=== PATIENT | male | born 1960 | race Caucasian/White ===

== ENCOUNTER 2016-10-30 00:48 | Inpatient (IN) | payer MEDICAID ==
[2016-10-30] VITALS (14 sets, daily range): BP systolic 116–180
[~2016-10-30] VITALS: Ht 170.2 cm; Wt 68.0 kg
[~2016-10-30 00:48] MED LIST: NAPR375T PO; NORCO5 PO
--- NOTE | 2016-10-30 00:48 | NUR ---
Patient to ER bed 7 to gown for evaluation. Side rails up.
--- NOTE | 2016-10-30 01:16 | NUR ---
ASIF Taylor at bedside examining patient.
--- NOTE | 2016-10-30 01:22 | NUR ---
Pt. presented to ED with notable facial lac on the bridge of his nose. Pt stated "I fell down the stairs". Pt. AAOx2 with periods of confusion.
[2016-10-30] MEDS ORDERED: LORazepam 2 MG/ML VIAL (FOR ER USE) IVP ONE ×2 (01:30→02:30)
[2016-10-30] MEDS ORDERED: NACL 0.9% 1,000 ML IV ONE (01:30)
[2016-10-30] MEDS ORDERED: DIPH-TET-PERTUS Vaccine 0.5 ML VIAL (ADACEL) IM ONE (01:30)
--- NOTE | 2016-10-30 01:45 | NUR ---
# 18 gauge angiocath placed to left AC. Use of asceptic technique. Opsite placed over site. Blood return noted. Blood for lab drawn from site. Flushed with 10 cc of normal saline. No evidence of infiltration noted. Patient tolerated well.
--- NOTE | 2016-10-30 01:53 | NUR ---
Pt. is having auditory and visual hallucinations at this time and frequently trying to get out of bed.
[2016-10-30 01:56] LABS: BASOPHILS # (AUTO) 0.1 K/uL (0.0-0.2); BASOPHILS % (AUTO) 1.1 % (0.0-2.0); EOSINOPHILS # (AUTO) 0.4 K/uL (0.0-0.4); EOSINOPHILS % (AUTO) 3.7 % (0.0-4.0); HEMATOCRIT 39.8 % (36-54); HEMOGLOBIN 13.9 g/dL (14.0-18.0); LYMPHOCYTES # (AUTO) 2.5 K/uL (1.0-5.5); LYMPHOCYTES % (AUTO) 21.4 % (20.5-51.5); MEAN CORPUSCULAR HEMOGLOBIN 30 pg (27-31); MEAN CORPUSCULAR HGB CONC 35 % (32-36); MEAN CORPUSCULAR VOLUME 85 fL (79.0-98.0); MONOCYTES # (AUTO) 0.8 K/uL (0.0-1.0); NEUTROPHILS # (AUTO) 7.9 K/uL (1.8-7.7); NEUTROPHILS % (AUTO) 66.8 % (40.0-70.0); PLATELET COUNT (AUTO) 357 K/uL (130-430); RED BLOOD CELL COUNT(AUTO) 4.69 MIL/uL (4.2-6.2); RED CELL DISTRIBUTION WIDTH 13.1 % (9.0-15.0); WHITE BLOOD COUNT (AUTO) 11.7 K/uL (4.8-10.8)
[2016-10-30] MEDS ORDERED: HALOPERIDOL LACTATE 5 MG/ML VIAL IVP ONE (02:00)
[2016-10-30 02:02] LABS: CALCIUM 8.7 mg/dL (8.4-11.0); CHLORIDE 110 mmol/L (98-107); CREATININE 1.14 mg/dL (0.55-1.30); GLUCOSE 112 mg/dL (70-99); POTASSIUM 3.8 mmol/L (3.5-5.1); SODIUM SERUM 139 mmol/L (136-145); UREA NITROGEN, BLOOD 6 mg/dL (8-21)
[2016-10-30 02:07] LABS: ALANINE AMINOTRANSFERASE 15 U/L (12-78); ALBUMIN 3.8 g/dL (3.4-4.8); ASPARTATE AMINOTRANSFERASE 19 U/L (10-37); TOTAL BILIRUBIN 0.3 mg/dL (0.0-1.0); TOTAL PROTEIN, SERUM 6.9 g/dL (6.4-8.3)
[2016-10-30 02:11] LABS: GFR AFRICAN AMERICAN 86 mL/min (>90)
[2016-10-30 02:12] LABS: ALCOHOL, BLOOD < 3 mg/dL (<10); ANION GAP < 3 (5-15)
[2016-10-30] MEDS ORDERED: OXYC30TA77 PO (02:19)
[2016-10-30] MEDS ORDERED: DIPHENHYDRAMINE INJ 50 MG/ML VIAL ONE ×2 (02:24→15:58)
[2016-10-30] MEDS ORDERED: DIPHENHYDRAMINE INJ 50 MG/ML VIAL IVP ONE (02:30)
[2016-10-30] MEDS ORDERED: HALOPERIDOL LACTATE 5 MG/ML VIAL IM ONE ×2 (02:30→15:45)
[2016-10-30] MEDS ORDERED: MORPHINE 2 MG/ML INJ. SYRINGE IVP ONE (03:00)
[2016-10-30 03:58] LABS: BARBITURATE, URINE NEGATIVE (NEG <=200); BENZODIAZEPINE, URINE POSITIVE (NEG <=150); METHAMPHETAMINES SCREEN,URINE POSITIVE (NEG <=500); URINE AMPHETAMINE POSITIVE (NEG <=500); URINE METHADONE NEGATIVE (NEG <=200)
[2016-10-30 03:59] LABS: CANNABINOID, URINE POSITIVE (NEG <=50); COCAINE, URINE NEGATIVE (NEG <=150); OPIATE, URINE NEGATIVE (NEG <=100); PHENCYCLIDINE SCREEN,URINE NEGATIVE (NEG <=25); UR TRICYCLIC ANTIDEPRESSANTS NEGATIVE (NEG <=300); URINE OXYCODONE SCREEN POSITIVE (NEG <=100); URINE PROPOXYPHENE SCREEN NEGATIVE (NEG <=300)
--- NOTE | 2016-10-30 04:20 | NUR ---
Note bee in ED - 10/30/16 at 0458 by JENIFER Pt is severly anxious and ripping off his pulse ox, leads, and blood pressure cuff. 12 lead EKG unsucessful after mutiple attempts due to patient constantly moving and ripping off leads.
--- NOTE | 2016-10-30 04:20 | NUR ---
Pt is severly anxious and ripping off his pulse oximetry, leads, and blood pressure cuff. 12 lead EKG unsucessful after mutiple attempts due to patient constantly moving and ripping off leads. Dr. Jacobson made aware.
--- NOTE | 2016-10-30 05:35 | NUR ---
Pt. continues to be anxious/agitated and jumping out of bed. Pt. is very confused and unable to listen to directions at this time.
[2016-10-30] MEDS ORDERED: KETAMINE HCL 500 MG/10 ML VIAL IM ONE ×2 (05:45→06:00)
--- NOTE | 2016-10-30 05:55 | NUR ---
Time out called.
[2016-10-30] MEDS ORDERED: KETAMINE HCL 500 MG/10 ML VIAL ONE (05:57)
--- NOTE | 2016-10-30 05:58 | NUR ---
ASIF Taylor at bedside examining patient.
--- NOTE | 2016-10-30 06:00 | NUR ---
Ketamine has been administered, 1 to 1 care being provided. Pt. on O2 via NC 2L, pulse ox and cardiac monitoring. Pt. stable at this time.
--- NOTE | 2016-10-30 06:15 | NUR ---
Pt. continues to be on 1 to 1 monitoring. Pt. is still anxious and agitated and trying to get out of bed. VS stable. Will cont. to monitor.
--- NOTE | 2016-10-30 06:30 | NUR ---
See Moderate sedation form.
--- NOTE | 2016-10-30 06:50 | NUR ---
Called Dr. John Hoang with a consult, spoke with Toshia from the exchange
--- NOTE | 2016-10-30 06:50 | NUR ---
Called Dr. Montes at [phone] with a consult, spoke with Toshia from the exchange
--- NOTE | 2016-10-30 06:59 | NUR ---
Pt. being transfered to ICU 1 as per ACLS protocol. Pt. still confused and trying to get out of bed. Pt. stable for transfer at this time
--- NOTE | 2016-10-30 07:00 | NUR ---
PM ASSESSMENT PT AWAKE, AGITATED AND COMBATIVE, AFEBRILE. RESTRAINTS BILAT WRISTS APPLIED, W/ GOOD CIRCULATION. NO IV SITE. ROOM AIR. LACERATIONS ON BRIDGE OF NOSE, STERISTRIPS APPLIED. SAFETY PRECAUTIONS IN PLACE, WILL CONTINUE TO MONITOR.
--- NOTE | 2016-10-30 07:01 | NUR ---
Bedside report given to receiving ROSALINA Freeman.
--- NOTE | 2016-10-30 07:30 | NUR ---
CLOSING REPORT PT AWAKE AND AGITATED. BED IN LOWEST POSITION, RESTRAINTS IN PLACE, W/ GOOD CIRCULATION. BEDSIDE REPORT GIVEN TO ROSALINA ROBERTS.
--- NOTE | 2016-10-30 07:31 | NUR ---
AM Assessment Received Pt awake, alert, orientated x1 to self. Pt breathing even and unlabored.Pt appears agitated and restless. Pt noted kicking his feet and attempting to get out of bed. Reorientated Pt to place, time and situation. PERRLA noted. Pt able to follow simple commands and verbalized needs. Lung sounds auscultated, lung sounds clear throughout all lobes. Abd. auscultated, bowel sounds noted throughout all quadrant. BUE and BLE AROM noted, bilateral radial and pedal pulse noted. 5/5 muscle strength noted for BUE and BLE noted. Bilateral wrist restraints in placed. Wrist restraints taken off for 5 mins. Skin WNL, cap refills less than 3 secs, skin is warm to the touch. Assessment done, plan of care discussed with Pt, call light within easy reach, bed at lowest position, will continue to monitor.
--- NOTE | 2016-10-30 07:40 | NUR ---
Called Dr. Montes at [phone] for orders per nurse Evelyne, spoke with Catrina from the exchange
--- NOTE | 2016-10-30 08:56 | NUR ---
Rounds Pt awake. Pt appears very agitated, restless, kicking his feet, tossing and turning in bed. Pt noted talking to self. Pt stated he hears voices and see people walking around. Pt states he's in a car. Reorientated Pt to place, time, and situation. Safety measures and fall precaution in placed. Informed Pt to push the call light if Pt needs assistance with anything. Pt verbalized understanding. Call light within easy reach, bed at lowest position. Will continue to monitor.
--- NOTE | 2016-10-30 09:30 | NUR ---
Dr. Montes was paged x2. Spoke with Arron (answering service). Arron stated she has not made Dr. Montes aware. This is the 2nd attempt. Currently awaiting return phone call.
--- NOTE | 2016-10-30 10:00 | NUR ---
Dr. Montes was paged x3. Spoke with Arron (answering service). Arron stated she has not made Dr. Montes aware. This is the 3rd attempt. Currently awaiting return phone call.
[2016-10-30] MEDS: LORazepam 2 MG/ML VIAL IVP PRN ×3 (10:38→23:24)
[2016-10-30] MEDS: D5NS 1,000 ML IV SCH ×2 (10:39→19:43)
--- NOTE | 2016-10-30 11:00 | NUR ---
Dr. Montes was paged x4. Spoke with Arron (answering service). Currently awaiting returned phone call.
--- NOTE | 2016-10-30 11:03 | NUR ---
Pt appears restless, agitated, tossing and turning in bed. Pt noted talking to self. Pt was screaming, "Sally". Verbalized to Pt that there is no one present. Reorientated Pt to place, time and situation. Informed Pt to push the call light if Pt needs assistance with anything. pt verbalized understanding. Call light within easy reach, bed at lowest position, will continue to monitor. Addendum: 10/30/16 at 1113 by Evelyne Maxwell RN Ativan was administered as ordered and ineffective.
--- NOTE | 2016-10-30 11:30 | NUR ---
MD rounds Pt awake. Pt attempting to get out of bed and biting on wrist restraints. Pt was reassess. No injuries noted on Pt. Reeducated Pt on safety measures that are in place, purpose of medical equipment, and plan of care. Pt verbalized understanding. Informed Pt to push the call light if Pt needs assistance with anything. Pt verbalized understanding. Call light within easy reach, bed at lowest position, will continue to monitor.
[2016-10-30] MEDS ORDERED: HALOPERIDOL LACTATE 5 MG/ML VIAL IVP PRN (12:00)
--- NOTE | 2016-10-30 12:13 | NUR ---
ALISE WATTS Received msg from Luba @ [facility] she is assigned CM: fax [phone], ph [phone].
--- NOTE | 2016-10-30 13:01 | NUR ---
MD rounds Pt awake. Pt appears agitated, restless, and talking to self. Reorientated Pt to place, time, and situation. Dr. Lopez at the bedside discussing plan of care. Informed Pt to push the call light if Pt needs assistance with anything. Pt verbalized understanding. Call light within easy reach, bed at lowest position, will continue to monitor.
[2016-10-30] MEDS: HALOPERIDOL LACTATE 5 MG/ML VIAL IVP PRN ×3 (13:20→23:25)
[2016-10-30] MEDS ORDERED: DIPHENHYDRAMINE INJ 50 MG/ML VIAL IM ONE (15:45)
[2016-10-30] MEDS ORDERED: LORazepam 2 MG/ML VIAL IM ONE (15:45)
[2016-10-30] MEDS ORDERED: LORazepam 2 MG/ML VIAL ONE (15:58)
[2016-10-30] MEDS ORDERED: HALOPERIDOL LACTATE 5 MG/ML VIAL ONE (15:59)
--- NOTE | 2016-10-30 16:00 | NUR ---
Spoke with Dr. Montes. made aware Pt has been restless, agitated, tossing and turning in bed, attempting to get out of bed, removing medical office assistant instructor, and talking to self. Speech is mumbled. Reorientated Pt to place, time and situation. Pt teaching has been ineffective. New orders to administered Haldol 5mg IM once, Ativan 2mg IM once, and Benadryl 50mg IM once. New orders read back, acknowledge, and noted.
--- NOTE | 2016-10-30 16:51 | NUR ---
Pt refused telemonitor. Reeducated Pt on the purpose of frequent monitor. Pt stated, "I don't want the monitor on. I can't sleep. It's bothering me and it's uncomfortable." Informed Pt to push the call light if Pt needs assistance with anything. Pt verbalized understanding. Call light within easy reach, bed at lowest position, will continue to monitor.
--- NOTE | 2016-10-30 17:30 | NUR ---
Page Dr Montes to update MD of Pt condition. Medication ordered by MD was not effective. Currently waiting returned phone call.
--- NOTE | 2016-10-30 19:30 | NUR ---
Initial Notes Received patient laying in bed, awake, restless, oriented to self only. Patient talking to self, uncooperative, attempting to get out of bed frequently, in bilateral soft wrist restraints. Patient denies any acute distress or pain when asked. Breathing even and unlabored on room air. IV site patent/clean/dry. Patient currently refusing monitoring, pulling at wires and attempting to bite at restraints. Educated patient on importance of monitoring, patient continue to refuse. Educated patient on use of call light for assistance and fall precautions. Incontinence care provided. Call light in hand, will continue to monitor.
--- NOTE | 2016-10-30 19:45 | NUR ---
Patient's mother at bedside. Mother at bedside. Patient is attempting to remove wrist restraints and get out of bed, stating he's go home with his mother, reoriented patient. Mother states she does not want patient to return to her home after discharge. Advised mother to call in the morning to speak with case management and clinical social work aide.
--- NOTE | 2016-10-30 22:00 | NUR ---
Rounds Patient remains restless, no change in mentation. Patient in no acute distress or pain. Breathing even and unlabored. IV site patent/clean/dry. Patient tolerating restraints, fingers warm to touch, pulses present, cap refill normal. Patient continues to attempt to bite at restraints and to remove monitoring devices. Re-educated patient on importance of monitoring, and redirected patient's attention from equipment. Call light in hand, fall precautions in place. Will continue to monitor.
--- NOTE | 2016-10-30 23:32 | NUR ---
Medicated for agitation Patient having frequent moments of agitation, disorientation, attempting to remove restraints and get out of bed. Medicated patient per MD orders. Vital signs stable. Patient refusing to keep monitoring lines in place, becoming aggressive unless removed. Educated patient on importance, patient continue to refuse.
[2016-10-31] VITALS (15 sets, daily range): BP systolic 124–160
--- NOTE | 2016-10-31 01:00 | NUR ---
Confusion/Agitation Patient confused, and agitated. Managed to get out of restraints, removed monitor and clothing, and got out of bed attempting to leave hospital in confused state. Security called to assist in getting patient back into bed and restraints. Vital signs stable. Reoriented patient to surroundings. Call light in hand, fall precautions in place. Will continue to monitor.
--- NOTE | 2016-10-31 04:00 | NUR ---
Agitation and BM Patient agitated on/off, attempted to reoriented patient to surroundings. Medicated patient per MD orders. Patient in no distress or pain. Breathing even and unlabored. IV site patent/clean/dry. Tolerating restraints, fingers warm to touch, pulses present, car refill normal. Patient had BM, incontinence care and linen change provided. Call light in hand, will continue to monitor.
[2016-10-31] MEDS: HALOPERIDOL LACTATE 5 MG/ML VIAL IVP PRN (04:13)
[2016-10-31] MEDS: LORazepam 2 MG/ML VIAL IVP PRN ×2 (04:13→11:45)
[2016-10-31] MEDS: D5NS 1,000 ML IV SCH ×2 (04:57→15:25)
--- NOTE | 2016-10-31 06:30 | NUR ---
Closing Notes Patient resting in bed with eyes closed, has short periods of rest/sleep followed by periods of restlessness and agitation. Patient denies any acute distress or pain at this time. Breathing even and unlabored on room air. IV site patent/clean/dry, no S/S infection/infiltration noted. Patient remains on bilateral soft wrist restraints, tolerating well; fingers warm to touch, pulses present, cap refill normal. Needs addressed throughout shift. Call light in hand, fall precautions in place. Will continue to monitor for changes and safety, and endorse all patient care/needs to oncoming nurse.
--- NOTE | 2016-10-31 06:42 | NUR ---
Consult f/u Call was placed to Dr Montes's office [phone], followed up on a consult from 10/30. Pt has not been seen by psych . Spoke with Paige at the doctors exchange. Will follow up as needed.
--- NOTE | 2016-10-31 07:30 | NUR ---
AM Assessment Received Pt awake, alert, orientated x2 to self and . Reoriented Pt to place, time, and situation. Pt noted talking to self, mumbling words. Pt states he was talking to a girl in the room. Informed Pt that no one was in the room. Pt appears restless and tossing in bed. Body twitching noted. Informed Pt to push the call light if Pt needs assistance with anything. Pt verbalized understanding. Call light within easy reach, bed at lowest position, will continue to monitor.
--- NOTE | 2016-10-31 08:45 | NUR ---
Dr. Montes paged x2. Spoke with Nati (MD exchange). Currently awaiting return paged to follow up on new consult. has not made his rounds.
--- NOTE | 2016-10-31 09:00 | NUR ---
MD rounds Pt awake. Dr. Mayorga at the bedside discussing plan of care. Informed Pt to push the call light if Pt needs assistance with anything. Pt verbalized understanding. Call light within easy reach, bed at lowest position, will continue to monitor.
--- NOTE | 2016-10-31 09:03 | NUR ---
Nutrition Update Fantasma Scale 17 noted. Pt admitted for ALOC, drug overdose. Diet: N/A BMI: 23.5 kg/m2 RD to follow per nutrition care standards.
--- NOTE | 2016-10-31 09:30 | NUR ---
Dr. Viktor Lopez called Re: follow up and Neuro clearance Per Dr. Lopez, patient is neurologically clear.
--- NOTE | 2016-10-31 10:15 | NUR ---
MD VISIT: DR. TANIA MARIN HERE TO SEE PATIENT, WITH ORDERS CARRIED OUT. MADE AWARE PATIENT WAS CLEARED MEDICALLY BY DR. HARDIN AND NEURO CLEARED BY DR. Jennifer HERRERA. PATIENT WAS PLACED ON 5150. WILL NOTIFY FARM OPERATIONS MANAGER FOR PSYCH FACILITY PLACEMENT.
--- NOTE | 2016-10-31 10:55 | NUR ---
Social Service Note: Pt was placed on a 5150 by psychiatrist; pt has orders to transfer to a psychiatric unit. [employer] has contacted [facility] [place] [facility] spoke to Diann; Diann stated that there are no beds but pt's information could be faxed should anything open up. [employer] contacted [facility]; [employer] spoke to Ester; Ester asked for pt's information to be faxed over; [employer] has faxed pt's information to [facility]. [employer] contacted [facility]; [employer] spoke to Steffanie; Steffanie asked for pt's information to be faxed over; [employer] has faxed pt's information for review. Addendum: 10/31/16 at 1255 by Carol Farooq LCSW Information has been faxed to [facility] [place]. [employer] placed call to [facility]; [employer] spoke to Kushal who states they are full. [employer] placed call to [facility] and spoke to Vaishali and they are full. [employer] called [facility] and spoke to Dima who asked for pt's information to be faxed; information has been faxed. Addendum: 10/31/16 at 1458 by Carol Farooq LCSW JOSE contacted [facility] and left a message for their intake department. JOSE spoke to Trina at [facility] who states that they are reviewing and will call back after shift change. JOSE spoke to Cherelle at [facility] who states that they have no beds. Addendum: 10/31/16 at 1528 by Carol Farooq LCSW JOSE spoke to Yue at [facility] who stated that [facility], [facility], [facility], and [facility] are all full today. JOSE contacted [facility] who stated that they are full but that pt's information could be faxed if they had discharges. [facility] has faxed pt's information to [facility].
--- NOTE | 2016-10-31 14:00 | NUR ---
Pt awake. Pt appears agitated and restless. Pt noted talking to self. Words were mumbled. Pt stated there was a girl sitting at the corner of the room. Informed Pt the there was no one in the room. Reorientated Pt to place, time and situation. Pt also had a BM and urinated on self. Gloria care, skin care, linen changed. Informed Pt to push the call light if Pt needs assistance with anything. pt verbalized understanding. Call light within easy reach, bed at lowest position, will continue to monitor.
[2016-10-31] MEDS: QUEtiapine FUMARATE 100 MG TABLET PO SCH ×2 (15:25→20:31)
--- NOTE | 2016-10-31 15:55 | NUR ---
Pt resting. Chest rise and fall noted. Pt easily aroused by voice. Pt stated he does not need anything at the moment. Informed Pt the call light if Pt needs assistance with anything. pt verbalized understanding. Call light within easy reach, bed at lowest position. will continue to monitor.
--- NOTE | 2016-10-31 18:00 | NUR ---
Pt awake and eating dinner. Pt denies hearing voices. Pt stated he does not need anything at the moment. Informed Pt to push the call light if Pt needs assistance with anything. Pt verbalized understanding. Call light within easy reach, bed at lowest position, will continue to monitor.
--- NOTE | 2016-10-31 20:00 | NUR ---
AWAKE, ALERT. CONFUSED AT TIMES. DENIES PAIN. EKG LEADS OFF, BP CUFF OFF, DISROBES. STATES HE TURNS AND HE BECOMES DISCONNECTED. RECONNECTED TO EKG AND BP CUFF. LEFT PIV DISLODGED, ALLOWED ANOTHER PIV TO BE RESTARTED IN LEFT FOREARM. COOPERATIVE. PLEASANT AT THIS TIME. MADE PACT NOT TO GET OUT OF BED. PROMISED TO BEHAVE. SEEMS TO UNDERSTAND CONSEQUENCES, RESTRAINTS OFF. SR. INSTRUCTED TO CALL WHEN HE NEEDS, CALL LIGHTS WITHIN REACH. ATIVAN 1 MG PO GIVEN WITH HS MEDS PER PT REQUEST FOR SLEEP.
[2016-10-31] MEDS: LORazepam 1 MG TABLET PO PRN (20:31)
--- NOTE | 2016-10-31 22:00 | NUR ---
DOZES ON AND OFF. NO DISTRESS NOTED.
[2016-11-01] VITALS (24 sets, daily range): BP systolic 103–158
--- NOTE | 2016-11-01 | NUR ---
SOUNDLY ASLEEP. TURNS SELF WELL. VSS. LOOKS COMFORTABLE.
[2016-11-01] MEDS: D5NS 1,000 ML IV SCH ×3 (02:07→23:07)
--- NOTE | 2016-11-01 04:00 | NUR ---
ASLEEP. VSS. TURNS SELF WELL. NO DISTRESS NOTED.
--- NOTE | 2016-11-01 05:30 | NUR ---
OOB TO COMMODE, DEFECATED 1 MOD FORMED BROWN STOOL. URINATED IN COMMODE, UNABLE TO MEASURE. BACK TO BED WITH OUT INCIDENCE. SELF CHG BATH DONE, VERY MINIMAL ASSIST. PARTIAL LINEN CHANGE. LEFT FOREARM PIV DISLODGED, RESTARTED IN LEFT FA GAUGE 22. MANI WELL. SECURED PROPERLY.
--- NOTE | 2016-11-01 06:00 | NUR ---
RESTING QUIETLY. PLEASANT. NO ACTING OUT NOTED. AAOX4. REMAINS IN GUARDED CONDITION.
--- NOTE | 2016-11-01 07:40 | NUR ---
AM Shift Assessment Received pt AAOx4, lying in bed, calm. Pt denies wanting to harm self and states he "does not know what happened last night." Skin warm and dry with scabs noted on head and face, cover with steri strips. IVF infusing D5NS 100 ml/hr on LFA 22G. Pt c/o chronic back pain 10/10 and asking for ativan. Pt also cooperative with care and assessment. Heart sounds regular, SR on monitor, HR 80. Respirations even and unlabored on room air. Lungs sounds clear bilaterally. Bowel sounds present x4 quads. Pt voids via urinal. Pt also refuses to wear SCDs, states he is aware of "risks and benefits" of having SCDs. Bed in lowest position. Will continue to monitor.
--- NOTE | 2016-11-01 07:44 | NUR ---
Dr. Stanley in to see pt. New orders made, will continue with plan of care.
[2016-11-01] MEDS: GABAPENTIN 100 MG CAPSULE PO SCH ×2 (08:02→20:37)
[2016-11-01] MEDS: QUEtiapine FUMARATE 100 MG TABLET PO SCH ×3 (08:02→20:37)
--- NOTE | 2016-11-01 09:31 | NUR ---
DIPRIVAN Pt noted to squirm, shake head, and move hand up toward ETT during oral care. Increased diprivan to 30 mcg/kg/min. Addendum: 11/01/16 at 1136 by Frances Wyatt RN INCORRECT ENTRY FOR INCORRECT PATIENT
[2016-11-01] MEDS: LORazepam 2 MG/ML VIAL IVP PRN (10:02)
--- NOTE | 2016-11-01 11:36 | NUR ---
PAGED DR PHELPS, [facility] [phone]
[2016-11-01] MEDS ORDERED: oxyCODONE HCL 10 MG TAB.ER.12H PO PRN (12:15)
[2016-11-01] MEDS: LORazepam 1 MG TABLET PO PRN ×2 (12:50→20:38)
[2016-11-01] MEDS: oxyCODONE HCL 5 MG TABLET PO PRN ×2 (12:50→18:51)
--- NOTE | 2016-11-01 12:50 | NUR ---
Patient Round Pt's mother at bedside. Pt refuses to eat prepared meal tray and is eating food brought by pt's mother. Pt also C/O 05/12 back pain, new orders obtained from Dr. Stanley, carried out. Administered PRN pain medication per order. Will continue to monitor.
--- NOTE | 2016-11-01 14:00 | NUR ---
Patient Round Follow up on pt's pain level, states pain is "7/10" and says, "The pain medication is working. This level is tolerable for me." Offered pt alternative interventions to decrease pain level, pt refuses at this time. Will continue to monitor.
--- NOTE | 2016-11-01 16:28 | NUR ---
CM DC PLANNING ANDRES/ALISSA CALLED TO ALL PSYCHIATRIC UNITS PER BRUNO/KATY'S NOTE; NO BEDS AVAILABLE TODAY. PER [facility] ROBERTS, [facility]; THEY THINK THEY ARE TOO FAR AWAY; WANT TO CONFIRM FAMILY WILL BE ABLE TO INTERNET MARKETING CONSULTANT Pt WHEN READY TO DC. THEY HAVE MD WHO REVIEWS IN-Pt ADMIT REQUESTS; MD NOT THERE ON WEEKENDS, BUT CAN REVIEW ON THURSDAY; PLEASE F/UP IF WITH THEM IF BED IS STILL NEEDED. PER [facility]; THEY DO NOT KEEP REFERRAL PACKETS; WILL HAVE TO SEND DAILY OR AGAIN IF THE ADMIT TO HAVING A BED AVAILABLE. [facility] HAD NO ANSWER; LIKELY NOT AVAILABLE ON WEEKENDS FOR ADMITS. [facility], MAYBE BED ON THURSDAY AFTER DISCHARGES; NO BEDS AT [facility] OR [facility]. WHAT ABOUT [facility]?
--- NOTE | 2016-11-01 19:20 | NUR ---
PM SHIFT ASSESSMENT Pt is A&O X4, resting in bed with eyes closed. Pt is on a 5150. On room air, O2 above 95%. SR on heart monitor. IV to left forearm, no s/s of infiltration, 22g. IVF infusing well. Pt is on a regular diet. Urinal at bedside for voiding. Scabs on face, otherwise skin intact. Addendum: 11/01/16 at 2146 by Mary Ortiz RN No s/s of distress. Safety measures in place. Will continue to monitor.
--- NOTE | 2016-11-01 19:33 | NUR ---
Closing/Endorsement Pt remains calm, cooperative, drowsy. Pt c/o 05/12 pain in lower back, medicated with prn oxycodone. Pt states he is "feeling much better now." Endorsed plan of care to Reginaldo ROMANO via SBAR tool.
[2016-11-02] VITALS (17 sets, daily range): BP systolic 111–159
[2016-11-02] MEDS: oxyCODONE HCL 5 MG TABLET PO PRN ×2 (00:59→06:06)
--- NOTE | 2016-11-02 01:05 | NUR ---
ROUNDS Pt stated pain 7/10 related to chronic back pain. PRN pain medication given per MD order. Will continue to monitor.
[2016-11-02] MEDS: LORazepam 1 MG TABLET PO PRN (03:27)
--- NOTE | 2016-11-02 05:15 | NUR ---
ROUNDS CHG bath given, pt tolerated bath well. Will continue to monitor.
--- NOTE | 2016-11-02 06:05 | NUR ---
ROUNDS Pt stated pain 9/10 related to chronic back pain. PRN pain medication given per MD order. Will continue to monitor.
--- NOTE | 2016-11-02 07:26 | NUR ---
ENDORSEMENT Pt care endorsed to ROSALINA Stubbs at bedside using nursing SBAR.
[2016-11-02 08:23] LABS: BASOPHILS # (AUTO) 0.1 K/uL (0.0-0.2); BASOPHILS % (AUTO) 0.7 % (0.0-2.0); EOSINOPHILS # (AUTO) 0.3 K/uL (0.0-0.4); EOSINOPHILS % (AUTO) 3.5 % (0.0-4.0); HEMATOCRIT 38.2 % (36-54); LYMPHOCYTES # (AUTO) 1.4 K/uL (1.0-5.5); LYMPHOCYTES % (AUTO) 14.9 % (20.5-51.5); MEAN CORPUSCULAR HEMOGLOBIN 29 pg (27-31); MEAN CORPUSCULAR HGB CONC 34 % (32-36); MEAN CORPUSCULAR VOLUME 85 fL (79.0-98.0); MONOCYTES # (AUTO) 0.8 K/uL (0.0-1.0); MONOCYTES % (AUTO) 8.3 % (1.7-9.3); NEUTROPHILS # (AUTO) 6.8 K/uL (1.8-7.7); NEUTROPHILS % (AUTO) 72.6 % (40.0-70.0); PLATELET COUNT (AUTO) 291 K/uL (130-430); RED BLOOD CELL COUNT(AUTO) 4.49 MIL/uL (4.2-6.2); RED CELL DISTRIBUTION WIDTH 13.4 % (9.0-15.0); WHITE BLOOD COUNT (AUTO) 9.4 K/uL (4.8-10.8)
[2016-11-02] MEDS: GABAPENTIN 100 MG CAPSULE PO SCH (08:30)
[2016-11-02] MEDS: QUEtiapine FUMARATE 100 MG TABLET PO SCH ×2 (08:30→12:19)
[2016-11-02] MEDS: D5NS 1,000 ML IV SCH (08:31)
--- NOTE | 2016-11-02 09:30 | NUR ---
Dr. Stanley at the bedside discussing plan of care. Informed Pt to push the call light if Pt needs assistance with anything. Pt verbalized understanding. Call light within easy reach, bed at lowest position, will continue to monitor.
--- NOTE | 2016-11-02 09:57 | NUR ---
Pt asleep. Pt easily aroused by voice and light stimuli. Pt denies auditory and visual hallucination and anxiety. Pt appears calm. Dr. Montes at the bedside discussing plan of care. Informed Pt to push the call light if Pt needs assistance with anything. Pt verbalized understanding. Call light within easy reach, bed at lowest position, will continue to monitor. Addendum: 11/02/16 at 1344 by Evelyne Maxwell RN Dr. Montes stated Pt was stable to get down graded to tele unit. Dr. Lizeth esquivel. Currently awaiting returned phone call.
--- NOTE | 2016-11-02 09:59 | NUR ---
PAGED DR PHELPS, [facility]. [phone]
--- NOTE | 2016-11-02 10:30 | NUR ---
Spoke with Dr. Stanley. made aware Pt was medically cleared from Dr. Montes to be down graded to tele unit then d/c home. New orders received from Dr. Stanley, read back, and noted.
--- NOTE | 2016-11-02 12:00 | NUR ---
Rounds Pt asleep. Pt easily aroused by voice. Pt denies auditory and visual hallucination. Pt stated he feels much better. Lunch tray provided to patient. Update patient on plan of care. Pt verbalized under standing. Call light within easy reach, bed at lowest position, will continue to monitor.
[2016-11-02] MEDS ORDERED: SER100 PO (15:21)
--- NOTE | 2016-11-02 15:37 | NUR ---
D/C Patient Patient given medication reconciliation form and D/C instructions. Exit Care provided. Patient verbalized understanding. MD discussed with patient the results and treatment provided. Ambulatory with steady gait for discharge to home. Patient in stable condition, ID band removed. IV catheter removed, intact and dressing applied, no active bleeding. Patient educated on pain management. All belongings sent with patient. Patient transported to [facility] via wheelchair.
--- NOTE | 2016-11-02 17:45 | NUR ---
Spoke with Pt via telephone after being D/C. Pt stated medication was not sent to Pt's pharmacy. Dr. Stanley paged. Currently awaiting returned phone call.
--- NOTE | 2016-11-02 18:14 | NUR ---
Spoke with Dr. Stanley. made aware patient's D/C medication was not sent to his preferred pharmacy. Dr. Stanley stated pharmacy was closed. Dr. Stanley will follow up on D/C medication tomorrow 11/03/2016.
== END 2016-11-02 15:37 | disposition home or self-care (01) | DRG 952 ==
LOC: SED 00:48 → SIC 06:39
PROVIDERS: ADMIT Internal Medicine Hospice and Palliative Medicine; ATTEND Internal Medicine Hospice and Palliative Medicine
PROC: 09QKXZZ Repair Nasal Mucosa and Soft Tissue, External Approach (ICD-10-PCS; principal; 2016-10-30)
DX: T42.4X1A Poisoning by benzodiazepines, accidental (unintentional), initial encounter (principal); F29 Unspecified psychosis not due to a substance or known physiological condition; T40.601A Poisoning by unspecified narcotics, accidental (unintentional), initial encounter; T40.7X1A Poisoning by cannabis (derivatives), accidental (unintentional), initial encounter; F12.10 Cannabis abuse, uncomplicated; G89.29 Other chronic pain; M54.5 Low back pain; R40.4 Transient alteration of awareness; Y92.89 Other specified places as the place of occurrence of the external cause; Z88.6 Allergy status to analgesic agent; Z88.5 Allergy status to narcotic agent; Z79.899 Other long term (current) drug therapy
CPT/HCPCS: 36415; 70450-TC; 70486-TC; 71010; 72125-TC; 80053; 80307; 82140-TC; 84484; 85025; 87081; 90715; 93005; 96372; 96374; 96375; 96376; 99285; G0482; J1200; J1630; J2060; J2270; J7042

== ENCOUNTER 2017-08-31 07:19 | Emergency (ER) | payer MEDICAID ==
[~2017-08-31] VITALS: Ht 170.2 cm; Wt 54.4 kg
[~2017-08-31 07:19] MED LIST changes: -NAPR375T PO; -NORCO5 PO; +SER100 PO
[2017-08-31 07:21] VITALS: BP_SYST 168
--- NOTE | 2017-08-31 07:25 | NUR ---
Patient to ER bed 6 to gown for evaluation. Side rails up. Assumed care.
--- NOTE | 2017-08-31 07:26 | NUR ---
ER at bedside examining patient.
--- NOTE | 2017-08-31 07:29 | NUR ---
Pt c/o nonradiating abd and chest pain w/dyspnea. Pt reports s/s were sudden onset at approx 1900 after evening meal. Pt denies significant med hx.Pt unable to remain still initial exam.
--- NOTE | 2017-08-31 07:44 | NUR ---
ER Dr. Galvan at bedside examining patient.
[2017-08-31] MEDS ORDERED: MORPHINE 4 MG/ML INJ. SYRINGE IVP ONE (08:00)
[2017-08-31] MEDS: ONDANSETRON HCL 4 MG/2 ML VIAL IVP ONE (08:04)
[2017-08-31] MEDS: MORPHINE SULFATE 10 MG/ML VIAL IVP ONE (08:05)
--- NOTE | 2017-08-31 08:05 | NUR ---
Pt medicated tolerated well.
[2017-08-31 08:12] LABS: CALCIUM 9.4 mg/dL (8.4-11.0); CREATININE 0.72 mg/dL (0.55-1.30)
[2017-08-31 08:14] LABS: POTASSIUM 3.9 mmol/L (3.5-5.1)
--- NOTE | 2017-08-31 08:15 | NUR ---
Patient transported to radiology via gurney, accompanied by rad staff.
[2017-08-31 08:16] LABS: PROTHROMBIN TIME 10.3 SECS (9.5-12.5)
[2017-08-31 08:17] LABS: ALBUMIN 3.9 g/dL (3.4-4.8); TOTAL BILIRUBIN 0.5 mg/dL (0.0-1.0)
--- NOTE | 2017-08-31 08:21 | NUR ---
Returned from radiology, back to [facility].
[2017-08-31 08:23] LABS: EOSINOPHILS # (AUTO) 0.1 K/uL (0.0-0.4); HEMATOCRIT 36.7 % (36-54); HEMOGLOBIN 12.3 g/dL (14.0-18.0); LYMPHOCYTES # (AUTO) 1.3 K/uL (1.0-5.5); LYMPHOCYTES % (AUTO) 15.7 % (20.5-51.5); MEAN CORPUSCULAR HEMOGLOBIN 28 pg (27-31); MEAN CORPUSCULAR HGB CONC 34 % (32-36); MEAN CORPUSCULAR VOLUME 85 fL (79.0-98.0); MONOCYTES # (AUTO) 0.4 K/uL (0.0-1.0); MONOCYTES % (AUTO) 5.1 % (1.7-9.3); NEUTROPHILS % (AUTO) 75.6 % (40.0-70.0); PLATELET COUNT (AUTO) 439 K/uL (130-430); RED BLOOD CELL COUNT(AUTO) 4.35 MIL/uL (4.2-6.2); RED CELL DISTRIBUTION WIDTH 13.9 % (9.0-15.0); WHITE BLOOD COUNT (AUTO) 8.1 K/uL (4.8-10.8)
[2017-08-31 08:26] LABS: EOSINOPHILS % (AUTO) 3.6 % (0.0-4.0)
[2017-08-31 08:27] LABS: NEUTROPHILS # (AUTO) 6.3 K/uL (1.8-7.7)
--- NOTE | 2017-08-31 09:25 | NUR ---
PT C/O PAIN AT TIME OF DISCHARGE, DR. ESTRELLA INFORMED. PT MEDICATED FOR PAIN. WILL CONTINUE TO MONITOR PRIOR TO D/C.
[2017-08-31] MEDS: MORPHINE SULFATE 10 MG/5 ML ORAL SOL. UDC PO ONE (10:15)
--- NOTE | 2017-08-31 10:30 | NUR ---
Patient given written and verbal discharge instructions and verbalizes understanding. ER MD discussed with patient the results and treatment provided. Patient in stable condition. ID arm band removed. IV catheter removed intact and dressing applied, no active bleeding. Rx of MIRALAX given. Patient educated on pain management and to follow up with PMD. Pain Scale 2. Opportunity for questions provided and answered.
== END 2017-08-31 10:30 | disposition home or self-care (01) ==
LOC: SED 07:19
DX: K59.00 Constipation, unspecified (principal); R07.89 Other chest pain; Z88.6 Allergy status to analgesic agent; Z88.5 Allergy status to narcotic agent
CPT/HCPCS: 36415; 71045; 74176; 80053; 83690; 84484; 85025; 85610; 85730; 93005; 96374; 96375; 99285; J2270; J2405

== ENCOUNTER 2017-09-05 13:07 | Emergency (ER) | payer MEDICAID ==
[~2017-09-05] VITALS: Ht 170.2 cm; Wt 68.0 kg
[2017-09-05 13:10] VITALS: BP_SYST 161
[2017-09-05] MEDS ORDERED: NACL 0.9% 1,000 ML IV ONE (13:49)
[2017-09-05] MEDS ORDERED: HYDROmorphone 1 MG INJ. 1 MG/ML AMPUL IVP ONE (14:00)
[2017-09-05] MEDS ORDERED: ONDANSETRON HCL 4 MG/2 ML VIAL IVP ONE (14:00)
[2017-09-05] MEDS ORDERED: DIPHENHYDRAMINE INJ 50 MG/ML VIAL IVP ONE (14:00)
[2017-09-05] MEDS ORDERED: HYDROmorphone 2 MG/ML VIAL ONE (14:20)
[2017-09-05 14:25] LABS: BASOPHILS # (AUTO) 0.1 K/uL (0.0-0.2); BASOPHILS % (AUTO) 1.1 % (0.0-2.0); EOSINOPHILS # (AUTO) 0.1 K/uL (0.0-0.4); EOSINOPHILS % (AUTO) 1.7 % (0.0-4.0); HEMATOCRIT 41.6 % (36-54); HEMOGLOBIN 13.7 g/dL (14.0-18.0); LYMPHOCYTES # (AUTO) 1.5 K/uL (1.0-5.5); LYMPHOCYTES % (AUTO) 18.2 % (20.5-51.5); MEAN CORPUSCULAR HEMOGLOBIN 28 pg (27-31); MEAN CORPUSCULAR HGB CONC 33 % (32-36); MEAN CORPUSCULAR VOLUME 84 fL (79.0-98.0); MONOCYTES # (AUTO) 0.6 K/uL (0.0-1.0); MONOCYTES % (AUTO) 7.3 % (1.7-9.3); NEUTROPHILS # (AUTO) 6.1 K/uL (1.8-7.7); NEUTROPHILS % (AUTO) 71.7 % (40.0-70.0); PLATELET COUNT (AUTO) 436 K/uL (130-430); RED BLOOD CELL COUNT(AUTO) 4.94 MIL/uL (4.2-6.2); RED CELL DISTRIBUTION WIDTH 13.6 % (9.0-15.0); WHITE BLOOD COUNT (AUTO) 8.4 K/uL (4.8-10.8)
[2017-09-05 14:42] LABS: PROTHROMBIN TIME 10.1 SECS (9.5-12.5)
[2017-09-05 14:47] LABS: CALCIUM 9.6 mg/dL (8.4-11.0); CREATININE 0.91 mg/dL (0.55-1.30); POTASSIUM 4.4 mmol/L (3.5-5.1)
[2017-09-05 14:51] LABS: ALBUMIN 3.8 g/dL (3.4-4.8); TOTAL BILIRUBIN 0.2 mg/dL (0.0-1.0)
[2017-09-05 16:09] VITALS: BP_SYST 135
== END 2017-09-05 16:09 | disposition home or self-care (01) ==
LOC: SED 13:07
DX: R10.84 Generalized abdominal pain (principal); Z98.84 Bariatric surgery status; Z88.5 Allergy status to narcotic agent
CPT/HCPCS: 36415; 74176; 80053; 82150; 83690; 85025; 85610; 85730; 96361; 96374; 96375; 99285; J1170; J1200; J2405; J7030

== ENCOUNTER 2023-10-14 15:29 | Emergency (ER) | payer MEDICAID, OTHER ==
[~2023-10-14] VITALS: Ht 162.6 cm; Wt 65.8 kg
[2023-10-14 15:30] VITALS: BP_SYST 158; PULSE 108; RESP 22; TEMP 97.4; O2SAT 98
[2023-10-14] MEDS: MORPHINE 2 MG/ML INJ. SYRINGE IVP ONE (15:57)
[2023-10-14 16:11] LABS: BASOPHILS # (AUTO) 0.1 K/uL (0.0-0.2); EOSINOPHILS # (AUTO) 0.3 K/uL (0.0-0.4); EOSINOPHILS % (AUTO) 2.7 % (0.0-4.0); HEMATOCRIT 47.4 % (36-54); HEMOGLOBIN 16.6 g/dL (14.0-18.0); LYMPHOCYTES # (AUTO) 2.2 K/uL (1.0-5.5); LYMPHOCYTES % (AUTO) 22.2 % (20.5-51.5); MEAN CORPUSCULAR HEMOGLOBIN 31 pg (27-31); MEAN CORPUSCULAR HGB CONC 35 % (32-36); MEAN CORPUSCULAR VOLUME 88 fL (79.0-98.0); MONOCYTES # (AUTO) 0.7 K/uL (0.0-1.0); MONOCYTES % (AUTO) 6.9 % (1.7-9.3); NEUTROPHILS # (AUTO) 6.6 K/uL (1.8-7.7); NEUTROPHILS % (AUTO) 67.2 % (40.0-70.0); PLATELET COUNT (AUTO) 376 K/uL (130-430); RED CELL DISTRIBUTION WIDTH 14.1 % (9.0-15.0); WHITE BLOOD COUNT (AUTO) 9.9 K/uL (4.8-10.8)
[2023-10-14 16:40] LABS: ANION GAP 10 (5-15); CALCIUM 9.3 mg/dL (8.4-11.0); CARBON DIOXIDE 26 mmol/L (23-29); CHLORIDE 100 mmol/L (98-107); CREATININE 1.03 mg/dL (0.55-1.30); GFR AFRICAN AMERICAN 94 mL/min (>90); GLUCOSE 107 mg/dL (74-106); POTASSIUM 3.9 mmol/L (3.5-5.1); SODIUM SERUM 136 mmol/L (136-145); UREA NITROGEN, BLOOD 14 mg/dL (8-21)
[2023-10-14 16:57] LABS: GFR NON AFRICAN-AMERICAN 78 mL/min (>90)
[2023-10-14 18:10] LABS: BARBITURATE, URINE NEGATIVE (NEG <=200); METHAMPHETAMINES SCREEN,URINE POSITIVE (NEG <=500)
[2023-10-14 18:11] LABS: URINE AMPHETAMINE POSITIVE (NEG <=500)
[2023-10-14 18:12] LABS: BENZODIAZEPINE, URINE NEGATIVE (NEG <=150); CANNABINOID, URINE POSITIVE (NEG <=50); COCAINE, URINE NEGATIVE (NEG <=150); OPIATE, URINE POSITIVE (NEG <=100); PHENCYCLIDINE SCREEN,URINE NEGATIVE (NEG <=25); URINE METHADONE NEGATIVE (NEG <=200)
[2023-10-14 18:13] LABS: UR TRICYCLIC ANTIDEPRESSANTS NEGATIVE (NEG <=300); URINE OXYCODONE SCREEN NEGATIVE (NEG <=100)
[2023-10-14] MEDS ORDERED: METFORMIN PO (18:37)
[2023-10-14] MEDS ORDERED: DICY-14 PO (19:37)
[2023-10-14 19:48] VITALS: BP_SYST 115; PULSE 96; RESP 18; TEMP 98.3; O2SAT 97
== END 2023-10-14 19:45 | disposition home or self-care (01) ==
LOC: SED 15:29
DX: R07.9 Chest pain, unspecified (principal); R10.32 Left lower quadrant pain; F17.200 Nicotine dependence, unspecified, uncomplicated; Z88.5 Allergy status to narcotic agent; Z88.6 Allergy status to analgesic agent; Z79.899 Other long term (current) drug therapy
CPT/HCPCS: 99285; 74176; 96374; 80307; 80048; 85025; 85379; 84484; 36415; J2270